=== PATIENT | female | born 1970 | race Caucasian/White ===

== ENCOUNTER 2017-01-08 00:51 | Emergency (ER) | payer BC, OTHER ==
[~2017-01-08] VITALS: Ht 160 cm; Wt 128.4 kg
[2017-01-08] MEDS ORDERED: Albuterol/Ipratropium 3ml neb HHN ONE (01:15)
[2017-01-08 02:23] VITALS: BP 116/64
[2017-01-08] MEDS ORDERED: ALBUTEROL2.5 MG/3 M HHN (02:52)
[2017-01-08] MEDS ORDERED: ALBUTEROL SULF8.5 GM INH (02:52)
[2017-01-08] MEDS ORDERED: PREDNISONE20 MG ORAL (02:52)
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
[2017-01-08] MEDS ORDERED: Albuterol ud Inhalation HHN ONE (03:00)
[2017-01-08 03:42] VITALS: BP 117/56
--- NOTE | 2017-01-08 12:28 | Diagnostic Imaging Report ---
Indication: SOB Technique: One view of the chest Comparison: 08/29/2008 Findings: Body habitus somewhat limits evaluation. The heart is borderline enlarged. Lungs and pleural spaces are clear. Impression: Borderline cardiomegaly No definite acute process
== END 2017-01-08 03:42 | disposition home or self-care (01) ==
LOC: EMR 01:30
DX: J20.9 Acute bronchitis, unspecified (principal); J45.901 Unspecified asthma with (acute) exacerbation
CPT/HCPCS: 71010; 94640; 94664; 99284; J7620

== ENCOUNTER 2017-05-10 20:06 | Emergency (ER) | payer OTHER ==
[~2017-05-10] VITALS: Ht 162.6 cm; Wt 124.7 kg
[~2017-05-10 20:06] MED LIST: ALBUTEROL SULF8.5 GM INH; ALBUTEROL2.5 MG/3 M HHN; PREDNISONE20 MG ORAL
[2017-05-10] MEDS ORDERED: NKM (20:16)
[2017-05-10 20:26] VITALS: BP 129/73
[2017-05-10] MEDS ORDERED: CYCLOBENZAPRINE10 MG ORAL (21:27)
[2017-05-10] MEDS ORDERED: IBUPROFEN600 MG ORAL (21:27)
[2017-05-10 21:30] LABS: APPEARANCE,URINE CLEAR; BILIRUBIN, URINE NEGATIVE (NEGATIVE); GLUCOSE, URINE (UA) NEGATIVE (NEGATIVE); KETONES,URINE 1+ (NEGATIVE); LEUKOCYTE ESTERASE ,URINE 1+ (NEGATIVE); NITRITE,URINE NEGATIVE (NEGATIVE); PH,URINE 5 (4.5-8.0); PROTEIN,URINE NEGATIVE (NEGATIVE); UROBILINOGEN,URINE NORMAL MG/DL (0.0-1.0)
[2017-05-10 21:33] LABS: COLOR,URINE YELLOW
[2017-05-10 22:02] VITALS: BP 129/73
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
--- NOTE | 2017-05-11 09:13 | Diagnostic Imaging Report ---
Indication: Neck pain. Technique: Continuous helical imaging of the cervical spine was obtained transaxially from the skull base to the upper thoracic spine. 2-D coronal and sagittal reformatted images were obtained. Automatic Exposure Control was utilized. Total Dose length Product (DLP): 532.[address] Dose Index Volume (CTDIvol): 25.77 mGy Comparison: None Findings: There is no acute fracture or malalignment identified. There is no soft tissue swelling identified. Moderate uncovertebral arthritis is demonstrated at multiple levels. Some of the intervertebral discs show narrowing and osteophytes. Impression: No acute injury Moderate spondylosis [facility] has communicated the preliminary results to the Emergency Department. Their findings are largely concordant with this report. The CT scanner at [facility] is accredited by the [employer] and the scans are performed using dose optimization techniques as appropriate to a performed exam including Automatic Exposure control.
--- NOTE | 2017-05-11 10:39 | Diagnostic Imaging Report ---
Indication: Back pain Comparison: None Findings: 3 views of the lumbar spine were obtained. L5-S1 disc is narrowed moderately. There is mild narrowing of the L4-5 disc. Sclerosis of the lower lumbar facets and generalized osteopenia noted. Alignment is normal. IMPRESSION: Degenerative disease described above
== END 2017-05-10 22:02 | disposition home or self-care (01) ==
LOC: EMR 20:42
DX: S16.1XXA Strain of muscle, fascia and tendon at neck level, initial encounter (principal); S39.012A Strain of muscle, fascia and tendon of lower back, initial encounter; Z88.1 Allergy status to other antibiotic agents; V43.52XA Car driver injured in collision with other type car in traffic accident, initial encounter; Y92.410 Unspecified street and highway as the place of occurrence of the external cause
CPT/HCPCS: 72020; 72125; 81003; 81025; 99284